=== PATIENT | female | born 1985 | race Caucasian/White ===

== ENCOUNTER 2016-07-16 05:53 | Inpatient (IN) | payer OTHER ==
[~2016-07-16] VITALS: Ht 167.6 cm; Wt 130.0 kg
[2016-07-16] VITALS (18 sets, daily range): BP systolic 105–155; BP diastolic 55–89
[~2016-07-16 05:53] MED LIST: PRENTAB9 PO
[2016-07-16] MEDS ORDERED: miSOPROStol 50 MCG 1/2 TAB (S0191) PO ONE ×2 (08:00→12:00)
[2016-07-16 08:11] LABS: MEAN CORPUSCULAR HEMOGLOBIN 33.8 pg (27.0-33.0); MEAN CORPUSCULAR HGB CONC 35.1 g/dl (32.0-36.5); MEAN CORPUSCULAR VOLUME 96.4 fl (80.0-96.0); RED CELL DISTRIBUTION WIDTH 12.1 % (11.5-14.5); WHITE BLOOD COUNT 9.7 K/mm3 (4.0-10.0)
[2016-07-16] MEDS ORDERED: OXYTOCIN 30 UNITS IN 0.9% NaCl 500ML IV BAG (J2590) As Ordered ONE (16:33)
[2016-07-16] MEDS ORDERED: LR 1,000 ML IV SCH (18:17)
[2016-07-16] MEDS ORDERED: BUTORPHANOL 2 MG/ML INJ (J0595) As Ordered ONE (18:18)
[2016-07-16] MEDS ORDERED: PROMETHAZINE INJ 25 MG/ML VIAL (J2550) As Ordered ONE (18:18)
[2016-07-16] MEDS ORDERED: PROMETHAZINE INJ 25 MG/ML VIAL (J2550) IV ONE (18:30)
[2016-07-16] MEDS ORDERED: OXYTOCIN DRIP 30 UNITS in APPROPRIATE DILUENT 1 EA IV SCH ×2 (18:30→19:48)
[2016-07-16] MEDS ORDERED: BUTORPHANOL 2 MG/ML INJ (J0595) IV ONE (18:30)
[2016-07-16] MEDS ORDERED: DIBUCAINE 1% OINTMENT 30GM TOP PRN (20:00)
[2016-07-16] MEDS ORDERED: METHYLERGONOVINE MALEATE 0.2 MG TAB PO PRN (20:00)
[2016-07-16] MEDS ORDERED: DOCUSATE SODIUM 100 MG CAP PO PRN (20:00)
[2016-07-16] MEDS ORDERED: MEASLES,MUMPS,RUBELLA VACCINE INJ (MMR-II) (90707) SC SCH (20:00)
[2016-07-16] MEDS ORDERED: LIDOCAINE 1% MDV INJ 50 ML VIAL INFIL ONE (20:00)
[2016-07-16] MEDS ORDERED: RHOGAM 300 MCG (1500 IU) INJ (J2790) IM SCH (20:00)
[2016-07-16] MEDS: IBUPROFEN 800 MG TAB PO PRN (23:37)
[2016-07-17] MEDS: ACETAMINOPHEN 500 MG TAB PO PRN ×2 (02:37→09:46)
[2016-07-17 06:23] VITALS: BP 110/55
[2016-07-17] MEDS: PRENATAL VITAMIN TAB PO SCH (07:53)
[2016-07-17] MEDS: IBUPROFEN 800 MG TAB PO PRN ×3 (07:54→22:31)
[2016-07-17 17:58] VITALS: BP 112/67
[2016-07-18 05:35] VITALS: BP 110/54
[2016-07-18] MEDS ORDERED: IBUP-1114 PO (08:31)
[2016-07-18] MEDS ORDERED: ACET50TA PO (08:31)
[2016-07-18] MEDS: PRENATAL VITAMIN TAB PO SCH (09:10)
[2016-07-18] MEDS: IBUPROFEN 800 MG TAB PO PRN (09:10)
== END 2016-07-18 10:20 | disposition home or self-care (01) | DRG 560 ==
LOC: M LDI 05:53 → M OBS 21:03
PROVIDERS: ADMIT Obstetrics & Gynecology; ATTEND Obstetrics & Gynecology
PROC: 10E0XZZ Delivery of Products of Conception, External Approach (ICD-10-PCS; principal; 2016-07-16)
PROC: 0HQ9XZZ Repair Perineum Skin, External Approach (ICD-10-PCS; 2016-07-16)
PROC: 3E0D7GC Introduction of Other Therapeutic Substance into Mouth and Pharynx, Via Natural or Artificial Opening (ICD-10-PCS; 2016-07-16)
DX: O48.0 Post-term pregnancy (principal); O64.5XX0 Obstructed labor due to compound presentation, not applicable or unspecified; F17.200 Nicotine dependence, unspecified, uncomplicated; Z37.0 Single live birth; Z3A.40 40 weeks gestation of pregnancy; Z88.1 Allergy status to other antibiotic agents; Z82.49 Family history of ischemic heart disease and other diseases of the circulatory system; Z83.3 Family history of diabetes mellitus; Z82.5 Family history of asthma and other chronic lower respiratory diseases; Z82.3 Family history of stroke; Z83.6 Family history of other diseases of the respiratory system; O70.0 First degree perineal laceration during delivery; O99.334 Smoking (tobacco) complicating childbirth

== ENCOUNTER 2017-01-17 09:00 | Emergency (ER) | payer OTHER ==
[~2017-01-17] VITALS: Ht 167.6 cm; Wt 98.7 kg
[~2017-01-17 09:00] MED LIST changes: +ACET50TA PO; +IBUP-1114 PO
[2017-01-17 10:31] LABS: MEAN CORPUSCULAR HEMOGLOBIN 33.5 pg (27.0-33.0); MEAN CORPUSCULAR HGB CONC 34.8 g/dl (32.0-36.5); MEAN CORPUSCULAR VOLUME 96.1 fl (80.0-96.0); RED CELL DISTRIBUTION WIDTH 11.4 % (11.5-14.5); WHITE BLOOD COUNT 10.6 K/mm3 (4.0-10.0)
[2017-01-17] MEDS ORDERED: LORazepam 2 MG TAB PO STA (10:33)
[2017-01-17 10:42] LABS: CONTROL LINE HCG INT CTR LINE PRESENT
[2017-01-17 10:59] LABS: ALBUMIN/GLOBULIN RATIO 1.21 (1.00-1.93); ALKALINE PHOSPHATASE 97 U/L (45-117); ALT/SGPT 34 U/L (12-78); ANION GAP 6 MEQ/L (8-16); AST/SGOT 22 U/L (15-37); BILIRUBIN,DIRECT 0.2 MG/DL (0.0-0.2); BILIRUBIN,TOTAL 0.9 MG/DL (0.2-1.0); BLOOD UREA NITROGEN 8 MG/DL (7-18); CALCIUM LEVEL 9.6 MG/DL (8.5-10.1); CARBON DIOXIDE LEVEL 28 MEQ/L (21-32); CHLORIDE LEVEL 108 MEQ/L (98-107); CREATININE FOR GFR 0.75 MG/DL (0.55-1.02); GLOMERULAR FILTRATION RATE > 60.0 (>60); GLUCOSE, FASTING 100 MG/DL (70-105); POTASSIUM SERUM 3.8 MEQ/L (3.5-5.1); SODIUM LEVEL 142 MEQ/L (136-145); TOTAL PROTEIN 7.3 GM/DL (6.4-8.2)
[2017-01-17 11:09] LABS: METHADONE URINE NEGATIVE (NEGATIVE)
[2017-01-17 12:24] VITALS: BP 128/75
[2017-03-25] MEDS ORDERED: ZOLO100T PO (07:49)
[2017-03-25] MEDS ORDERED: ZOLO50TA PO (07:49)
[2017-03-25] MEDS ORDERED: METO1TAB32 PO (07:49)
== END 2017-01-17 12:27 | disposition home or self-care (01) ==
LOC: M ED 09:00
DX: F41.9 Anxiety disorder, unspecified (principal); F31.9 Bipolar disorder, unspecified; F60.9 Personality disorder, unspecified; Z88.0 Allergy status to penicillin; Z88.6 Allergy status to analgesic agent

== ENCOUNTER 2017-04-05 13:20 | Day surgery (SDC) | payer OTHER ==
[~2017-04-05] VITALS: Ht 167.6 cm; Wt 90.7 kg
[~2017-04-05 13:20] MED LIST changes: +METO1TAB32 PO; +ZOLO100T PO; +ZOLO50TA PO
[2017-04-05] MEDS ORDERED: BUPIVACAINE HCL 0.25% 30 ML VIAL As Ordered ONE (13:29)
[2017-04-05] MEDS ORDERED: LIDOCAINE 1% MDV 20ML VIAL SQ ONE (13:45)
[2017-04-05] MEDS ORDERED: LR 1,000 ML IV ONE (13:45)
[2017-04-05 14:15] LABS: MEAN CORPUSCULAR HGB CONC 35.5 g/dl (32.0-36.5); MEAN CORPUSCULAR VOLUME 95.8 fl (80.0-96.0); RED CELL DISTRIBUTION WIDTH 11.6 % (11.5-14.5); WHITE BLOOD COUNT 11.8 K/mm3 (4.0-10.0)
[2017-04-05] MEDS ORDERED: ONDANSETRON 4MG/2ML VIAL (J2405) As Ordered ONE (14:39)
[2017-04-05] MEDS ORDERED: ROCURONIUM BROMIDE 50 MG/5 ML VIAL/SYRINGE As Ordered ONE (14:39)
[2017-04-05] MEDS ORDERED: LIDOCAINE 2% INJ 100 MG/5 ML SDV (FOR ANES.) As Ordered ONE (14:39)
[2017-04-05] MEDS ORDERED: PROPOFOL 200 MG/20 ML VIAL As Ordered ONE (14:39)
[2017-04-05] MEDS ORDERED: fentaNYL 100 MCG/2 ML INJECTION (J3010) As Ordered ONE (14:39)
[2017-04-05] MEDS ORDERED: MIDAZOLAM INJ 2 MG/2 ML VIAL (J2250) As Ordered ONE (14:42)
[2017-04-05 15:38] LABS: CONTROL LINE UCG INT CTR LINE PRESENT
[2017-04-05 15:45] LABS: CONTROL LINE HCG INT CTR LINE PRESENT
[2017-04-05] MEDS ORDERED: GLYCOPYRROLATE INJ 0.2 MG/ML 2 ML VIAL As Ordered ONE (16:30)
[2017-04-05] MEDS ORDERED: NEOSTIGMINE 1MG/ML 5 ML SYRINGE (J2710) As Ordered ONE (16:30)
[2017-04-05] MEDS ORDERED: KETOROLAC 60 MG/2 ML VIAL (J1885) As Ordered ONE (16:52)
[2017-04-05] MEDS ORDERED: MEPERIDINE INJ 25 MG/ML VIAL (J2175) As Ordered ONE (17:08)
[2017-04-05] MEDS: MEPERIDINE INJ 25 MG/ML VIAL (J2175) IV PRN ×2 (17:08→17:25)
[2017-04-05] MEDS ORDERED: fentaNYL 100 MCG/2 ML INJECTION (J3010) IV PRN (17:15)
[2017-04-05] MEDS ORDERED: ONDANSETRON 4MG/2ML VIAL (J2405) IV PRN (17:15)
[2017-04-05] MEDS ORDERED: LR 1,000 ML IV SCH (17:15)
[2017-04-05] MEDS ORDERED: PERCOCET 5MG/325MG TAB As Ordered ONE (17:20)
[2017-04-05] MEDS: PERCOCET 5MG/325MG TAB PO PRN ×2 (17:30→18:21)
--- NOTE | 2017-04-05 18:21 | RO ---
DATE OF PROCEDURE: 04/05/2017 PREPROCEDURE DIAGNOSIS: Satisfied parity with undesired fertility. POSTPROCEDURE DIAGNOSIS: Satisfied parity with undesired fertility. PROCEDURE: Laparoscopic bilateral tubal ligation using Filshie clips. SURGEON: Stephanie Suresh MD EXECUTIVE CHEF ASSISTANT: None. ANESTHESIA: General endotracheal. ESTIMATED BLOOD LOSS: 5 mL INTRAVENOUS FLUIDS: 1100 mL of lactated Ringers solution. URINE OUTPUT: 100 mL SPECIMENS: None. PREOPERATIVE ANTIBIOTICS: None. OPERATIVE FINDINGS: Patient with normal appearing pelvic anatomy to include bilateral adnexa and uterus. Appendix was visualized, appeared to be normal as well as normal appearing liver edge. DESCRIPTION OF PROCEDURE: After informed consent was obtained and written consent was reviewed, the patient was brought to the operating room where general endotracheal anesthesia was obtained. She was then placed in the lithotomy position, and was prepped and draped in a normal sterile fashion. A time out in the operating room was then performed identifying the patient, procedure to be performed as well as drug allergies. A bivalve speculum was then placed revealing the cervix. The anterior lip of the cervix was grasped with single tooth tenaculum. A Hulka tenaculum was then advanced through the cervical os for means to manipulate the uterus. A single tooth tenaculum as well as the speculum was then removed. A Gillespie catheter was then placed and set to gravity. Gloves were changed and attention was turned to the patient's abdomen. 0.25% Marcaine was infused in umbilical region. This area was incised and a 5 mm trocar sleeve was advanced through the incision. Laparoscope was replaced, intraabdominal placement was confirmed. Pneumoperitoneum was then obtained using c02 gas. The abdomen was then surveyed with the above noted finding. Next, a second trocar was placed. This was 2 cm above the pubic symphysis in the midline. This area was infused with 0.25% Marcaine. An incision was made into this area. An 8 mm trocar sleeve was then advanced through this incision under direct visualization. Next, using a Filshie clip applicator, a Filshie clip was applied in the mid isthmus portion of the fallopian tube with good blanching noted. The fimbriated end of the of this fallopian tube was followed out prior to placement of the Filshie clip. Next in a similar fashion, the right fallopian tube was followed out to the fimbriated end. Filshie clip applicator was reloaded and a Filshie clip was applied in the mid isthmus portion of the right fallopian tube with good blanching noted. Instruments were then removed from the patient's abdomen. The pneumoperitoneum was then released. Trocars were removed. Incisions were closed with #4-0 Monocryl and was dressed with Dermabond. Gillespie catheter was removed as well as the Hulka tenaculum. Tenaculum sites were inspected and noted to be hemostatic. The patient was then taken out of lithotomy position, was awakened from general anesthesia and was taken to the recovery room in stable condition. Counts were correct.
[2017-04-05 19:50] VITALS: BP 117/68
== END 2017-04-05 20:05 | disposition home or self-care (01) ==
LOC: M SDC 13:20
PROVIDERS: ATTEND Obstetrics & Gynecology
DX: Z30.2 Encounter for sterilization (principal); K21.9 Gastro-esophageal reflux disease without esophagitis; F17.210 Nicotine dependence, cigarettes, uncomplicated; Z79.899 Other long term (current) drug therapy; Z88.0 Allergy status to penicillin

== ENCOUNTER → 2017-09-11 | Outpatient (REF) | payer OTHER ==
[2017-09-14 00:07] LABS: HPV HYBRID CAPTURE II Negative (Negative)
== END ==
LOC: M LAB REF 18:30
DX: Z01.419 Encounter for gynecological examination (general) (routine) without abnormal findings (principal); Z11.51 Encounter for screening for human papillomavirus (HPV)

== ENCOUNTER → 2017-10-25 | Outpatient (CLI) | payer OTHER | LOC: M PLARAD 15:42 | DX: M51.37 Other intervertebral disc degeneration, lumbosacral region (principal) | CPT/HCPCS: 72148 ==

== ENCOUNTER → 2017-10-30 | Outpatient (CLI) | payer OTHER | LOC: M SLEEP HO 15:26 | DX: G47.33 Obstructive sleep apnea (adult) (pediatric) (principal) | CPT/HCPCS: G0399 ==

== ENCOUNTER → 2018-01-30 | Outpatient (CLI) | payer OTHER | LOC: M RAD 13:38 | DX: J32.4 Chronic pansinusitis (principal); D16.4 Benign neoplasm of bones of skull and face | CPT/HCPCS: 70486 ==

== ENCOUNTER 2018-09-30 10:35 | Outpatient (CLI) | payer OTHER ==
[~2018-09-30 10:35] MED LIST changes: -ACET50TA PO; +CYCL10TA PO; +GABA-1171 PO; +HYDR50TA70 PO; +MAPA500T2 PO
[2018-09-30] MEDS ORDERED: MIDAZOLAM INJ 2 MG/2 ML VIAL (J2250) As Ordered ONE ×2 (12:43→13:11)
[2018-09-30] MEDS ORDERED: fentaNYL 100 MCG/2 ML INJECTION (J3010) As Ordered ONE (13:11)
[2018-09-30] MEDS ORDERED: KETAMINE INJ 500 MG/5 ML VIAL As Ordered ONE (13:15)
--- NOTE | 2018-09-30 14:07 | REP ---
MR CERVICAL SPINE WITHOUT CONTRAST: HISTORY: Cervicalgia. The examination is extremely limited secondary to motion. Disc bulges are present at the C5-6 and C6-7 levels. There is no definite spinal cord compression. The visualized neural foramina are patent. There are no definite areas of abnormal signal intensity in the spinal cord. The C5-6 intervertebral disc is decreased in height consistent with disc degeneration. Increased signal intensity on T2-weighted images is present in the inferior endplate of the C5 vertebral body. This represents degenerative change. IMPRESSION: Very limited examination demonstrating cervical spondylosis at the C5-6 and C6-7 levels. Electronically Signed by Pierre Robert MD 09/30/2018 02:13 P
--- NOTE | 2018-09-30 14:08 | REP ---
MR Brain without contrast HISTORY: Cervicalgia COMPARISON : CT 11/22/2017 The examination is very limited secondary to motion. There are no definite areas of abnormal signal intensity in the brain. There is no intraparenchymal hemorrhage, infarct, mass or midline shift. The ventricular system is normal in appearance. There is no extra cerebral collection. Mucosal thickening is present in the right ethmoid and sphenoid sinuses. IMPRESSION: Limited examination demonstrating no definite intracranial lesion. Electronically Signed by Pierre Robert MD 09/30/2018 02:00 P
[2018-09-30 15:10] VITALS: BP 120/70
== END 2018-09-30 15:20 | disposition home or self-care (01) ==
LOC: M SDC 10:35
PROVIDERS: ATTEND Psychiatry & Neurology Neurology
DX: M47.812 Spondylosis without myelopathy or radiculopathy, cervical region (principal); M62.9 Disorder of muscle, unspecified; R20.2 Paresthesia of skin; F17.210 Nicotine dependence, cigarettes, uncomplicated; F12.20 Cannabis dependence, uncomplicated; Z79.899 Other long term (current) drug therapy
CPT/HCPCS: 70551; 72141; 99156; 99157; J2250

== ENCOUNTER → 2019-01-08 | Outpatient (CLI) | payer OTHER ==
[2019-01-08 17:35] LABS: HCG, SERUM QUALITATIVE NEGATIVE (NEGATIVE)
[2019-01-08 17:44] LABS: FREE T4 0.82 NG/DL (0.76-1.46)
[2019-01-08 17:52] LABS: PROLACTIN 7.2 NG/ML
== END ==
LOC: M SMT 15:31
PROVIDERS: ATTEND Advanced Practice Midwife
DX: N64.3 Galactorrhea not associated with childbirth (principal)

== ENCOUNTER → 2020-05-21 | Outpatient (CLI) | payer OTHER ==
[~2020-05-21] MED LIST changes: +CYCL-707 PO; -CYCL10TA PO
--- NOTE | 2020-05-21 15:43 | REP ---
INDICATION: PAIN. COMPARISON: 01/20/2012 TECHNIQUE: Three views are provided. FINDINGS: AC joint shows no widening or elevation of the clavicle in relationship to the acromion. No significant spurring. Clavicle, scapula, visible humerus and ribs are without fracture there is no subluxation or dislocation of the in a Ilya from the glenoid. No abnormal soft tissue calcification. IMPRESSION: 1. Negative left shoulder for fracture, subluxation, focal bone lesion or abnormal soft tissue calcification. Both the AC and glenohumeral joints were unremarkable. <Electronically signed by Micky Hernandez > 05/21/20 [id number]
--- NOTE | 2020-05-21 15:50 | REP ---
INDICATION: PAIN. COMPARISON: 01/20/2012 TECHNIQUE: Six views, patient could not extend and open her mouth sufficiently for an odontoid view FINDINGS: The lateral view shows some loss of the normal cervical lordosis which remains only at the C2-3 level. There is cervical spondylosis at C5-6 and C6-7 with significant progression since 2012. Prominent anterior osteophytes and slightly smaller posterior osteophytes at C5-6 and C6-7. The C4-5 and above disc levels are maintained. There is no subluxation with flexion and extension. C1-2 relationship is intact on all views. Both flexion and extension are limited with significant decreased range of motion. Some facet arthropathy is noted. Uncinate spurs are prominent at C5-6 and C6-7 on the right and left sides. These cause foraminal encroachment at both these levels. The AP view shows no torticollis. The dens maintains normal relationship to the anterior arch of C1 on all lateral views. No fracture or compression deformity. No prevertebral swelling. IMPRESSION: 1. Significant progression of cervical spondylosis at C5-6 and C6-7 with anterior osteophytes, just slightly smaller posterior osteophytes at these levels and disc space narrowing, progressive. 2. The other disc space heights and vertebral heights are maintained. 3. Very limited range of motion with flexion and extension but no instability, prevertebral swelling, compression deformity or other acute finding on lateral projection. 4. Uncinate spurring with bilateral foraminal encroachment at C5-6 and C6-7. <Electronically signed by Micky Hernandez > 05/21/20 1586
== END ==
LOC: M WUC 15:12
PROVIDERS: ATTEND Nurse Practitioner Family
DX: M47.812 Spondylosis without myelopathy or radiculopathy, cervical region (principal); M25.78 Osteophyte, vertebrae; M25.512 Pain in left shoulder

== ENCOUNTER 2021-04-17 08:15 | Emergency (ER) | payer OTHER ==
[~2021-04-17] VITALS: Ht 142.2 cm; Wt 75.0 kg
[2021-04-17 08:15] VITALS: BP 123/76
[2021-04-17] MEDS ORDERED: hydrOXYzine 50 MG TAB PO ONE (10:00)
== END 2021-04-17 11:41 | disposition home or self-care (01) ==
LOC: M ED 08:15
DX: F41.0 Panic disorder [episodic paroxysmal anxiety] (principal); Z88.8 Allergy status to other drugs, medicaments and biological substances; Z79.899 Other long term (current) drug therapy

== ENCOUNTER → 2021-04-18 | Outpatient (CLI) | payer OTHER ==
[2021-04-18 10:18] LABS: BASO # 0.1 10^3/uL (0.0-0.2); BASO % 0.6 % (0.0-1.0); EOS # 0.1 10^3/uL (0.0-0.5); EOS % 0.6 % (0.0-3.0); HEMATOCRIT 44.5 % (36.0-47.0); HEMOGLOBIN 15.3 g/dl (12.0-15.5); LYMPH # 2.4 10^3/uL (1.5-5.0); LYMPH % 21.7 % (24.0-44.0); MEAN CORPUSCULAR HEMOGLOBIN 33.8 pg (27.0-33.0); MEAN CORPUSCULAR HGB CONC 34.4 g/dl (32.0-36.5); MEAN CORPUSCULAR VOLUME 98.5 fl (80.0-96.0); MONO # 0.7 10^3/uL (0.0-0.8); MONO % 6.8 % (2.0-8.0); NEUTROPHILS # 7.6 10^3/uL (1.5-8.5); NEUTROPHILS % 69.7 % (36.0-66.0); PLATELET COUNT, AUTOMATED 252 10^3/uL (150-450); RED BLOOD COUNT 4.52 10^6/uL (4.00-5.40); WHITE BLOOD COUNT 10.9 10^3/uL (4.0-10.0)
[2021-04-18 13:08] LABS: ALT/SGPT 25 U/L (12-78); AMYLASE 31 U/L (25-115); BILIRUBIN,TOTAL 1.5 MG/DL (0.2-1.0); BLOOD UREA NITROGEN 13 MG/DL (7-18); CALCIUM LEVEL 9.6 MG/DL (8.5-10.1); CARBON DIOXIDE LEVEL 29 MEQ/L (21-32); CHLORIDE LEVEL 106 MEQ/L (98-107); GLOMERULAR FILTRATION RATE > 60.0 (>60); GLUCOSE, FASTING 96 MG/DL (70-100); LIPASE 126 U/L (73-393); POTASSIUM SERUM 3.7 MEQ/L (3.5-5.1); SODIUM LEVEL 140 MEQ/L (136-145); TOTAL PROTEIN 6.9 GM/DL (6.4-8.2)
== END ==
LOC: M WUC 08:21
PROVIDERS: ATTEND Family Medicine
DX: R10.84 Generalized abdominal pain (principal); R53.81 Other malaise

== ENCOUNTER → 2021-05-24 | Outpatient (REF) | payer OTHER | LOC: M SFHCWAGY 10:21 | PROVIDERS: ATTEND Obstetrics & Gynecology | DX: Z12.4 Encounter for screening for malignant neoplasm of cervix (principal); R87.610 Atypical squamous cells of undetermined significance on cytologic smear of cervix (ASC-US) ==

== ENCOUNTER → 2022-09-20 | Outpatient (REF) | payer OTHER | LOC: M SFHCWAGY 17:17 | PROVIDERS: ATTEND Obstetrics & Gynecology | DX: Z01.419 Encounter for gynecological examination (general) (routine) without abnormal findings (principal); R87.610 Atypical squamous cells of undetermined significance on cytologic smear of cervix (ASC-US) ==

== ENCOUNTER → 2023-06-03 | Outpatient (CLI) | payer OTHER ==
[~2023-06-03] MED LIST changes: +DICY20TA20 PO; +MIRA3350 PO; +ONDA4TAB6 PO; +PROP60CA
== END ==
LOC: M RAD 08:12
PROVIDERS: ATTEND Internal Medicine Gastroenterology
DX: R10.12 Left upper quadrant pain (principal); R11.2 Nausea with vomiting, unspecified
CPT/HCPCS: 78264; A9541

== ENCOUNTER 2023-06-07 13:27 | Emergency (ER) | payer OTHER ==
[~2023-06-07] VITALS: Ht 167.6 cm; Wt 77.5 kg
[2023-06-07 13:28] VITALS: TEMP 97.8
[2023-06-07 14:59] LABS: BASO # 0.1 10^3/uL (0.0-0.2); BASO % 0.7 % (0.0-1.0); EOS # 0.2 10^3/uL (0.0-0.5); EOS % 2.9 % (0.0-3.0); HEMATOCRIT 43.4 % (36.0-47.0); HEMOGLOBIN 14.8 g/dl (12.0-15.5); LYMPH # 2.7 10^3/uL (1.5-5.0); LYMPH % 31.9 % (24.0-44.0); MEAN CORPUSCULAR HEMOGLOBIN 35.2 pg (27.0-33.0); MEAN CORPUSCULAR HGB CONC 34.1 g/dl (32.0-36.5); MEAN CORPUSCULAR VOLUME 103.1 fl (80.0-96.0); MONO # 0.7 10^3/uL (0.0-0.8); MONO % 8.5 % (2.0-8.0); NEUTROPHILS # 4.7 10^3/uL (1.5-8.5); NEUTROPHILS % 55.8 % (36.0-66.0); PLATELET COUNT, AUTOMATED 238 10^3/uL (150-450); RED BLOOD COUNT 4.21 10^6/uL (4.00-5.40); WHITE BLOOD COUNT 8.4 10^3/uL (4.0-10.0)
[2023-06-07 15:30] LABS: LIPASE 38 U/L (12-53)
[2023-06-07 15:32] LABS: ALKALINE PHOSPHATASE 65 U/L (46-116); ALT/SGPT 21 U/L (7.0-40); AST/SGOT 20 U/L (<34); BILIRUBIN,DIRECT 0.4 MG/DL (<0.4); BILIRUBIN,TOTAL 1.3 MG/DL (0.3-1.2); BLOOD UREA NITROGEN 16 MG/DL (9-23); CALCIUM LEVEL 9.5 MG/DL (8.5-10.1); CARBON DIOXIDE LEVEL 29 MMOL/L (20-31); CHLORIDE LEVEL 109 MMOL/L (98-107); CREATININE FOR GFR 0.72 MG/DL (0.55-1.30); GLOMERULAR FILTRATION RATE > 60.0 (>60); GLUCOSE, FASTING 116 MG/DL (60-100); POTASSIUM SERUM 4.8 MMOL/L (3.5-5.1); SODIUM LEVEL 142 MMOL/L (136-145); TOTAL PROTEIN 6.9 G/DL (5.7-8.2)
[2023-06-07 15:36] LABS: HCG, SERUM QUALITATIVE NEGATIVE (NEGATIVE)
[2023-06-07] MEDS ORDERED: ACETAMINOPHEN *IV* 1,000 MG in IV 1 EA IV ONE (16:40)
[2023-06-07] MEDS ORDERED: METOCLOPRAMIDE INJ 10MG/2ML VIAL IV ONE (16:40)
[2023-06-07] MEDS ORDERED: NS 1,000 ML IV ONE (16:40)
[2023-06-07] MEDS ORDERED: ISOVUE-370 76% 100ML VIAL As Ordered ONE (16:47)
[2023-06-07 19:15] VITALS: BP 136/84; O2SAT 96
[2023-06-11] MEDS ORDERED: LINZ145C (07:42)
[2023-06-11] MEDS ORDERED: SUCR1TAB56 (07:42)
[2023-06-11] MEDS ORDERED: HYDR-3363 PO (11:42)
[2023-06-11] MEDS ORDERED: PROM12.56 PO (11:42)
== END 2023-06-07 20:33 | disposition home or self-care (01) ==
LOC: M ED 13:27
DX: K59.00 Constipation, unspecified (principal); N83.202 Unspecified ovarian cyst, left side; K76.89 Other specified diseases of liver; R91.1 Solitary pulmonary nodule; F12.10 Cannabis abuse, uncomplicated; F10.10 Alcohol abuse, uncomplicated; Z88.1 Allergy status to other antibiotic agents; Z88.6 Allergy status to analgesic agent; Z88.8 Allergy status to other drugs, medicaments and biological substances; Z79.83 Long term (current) use of bisphosphonates; Z79.810 Long term (current) use of selective estrogen receptor modulators (SERMs); Z79.899 Other long term (current) drug therapy
CPT/HCPCS: 74177; 80048; 80076; 81001; 83690; 84703; 85025; 87086; 96361; 96374; 96375; 99284; J0131; J2765; Q9967

== ENCOUNTER 2023-08-22 08:52 | Emergency (ER) | payer OTHER ==
[~2023-08-22] VITALS: Ht 167.6 cm; Wt 72.7 kg
[~2023-08-22 08:52] MED LIST changes: +HYDR-3363 PO; +LINZ145C; +PROM12.56 PO; +SUCR1TAB56
[2023-08-22] MEDS: NS 1,000 ML IV ONE (09:38)
[2023-08-22 09:54] LABS: BASO # 0.1 10^3/uL (0.0-0.2); BASO % 0.5 % (0.0-1.0); EOS # 0.2 10^3/uL (0.0-0.5); EOS % 1.4 % (0.0-3.0); HEMATOCRIT 41.1 % (36.0-47.0); HEMOGLOBIN 14.4 g/dl (12.0-15.5); LYMPH # 2.4 10^3/uL (1.5-5.0); LYMPH % 19.5 % (24.0-44.0); MEAN CORPUSCULAR HEMOGLOBIN 34.9 pg (27.0-33.0); MEAN CORPUSCULAR VOLUME 99.5 fl (80.0-96.0); MONO % 8.3 % (2.0-8.0); NEUTROPHILS # 8.5 10^3/uL (1.5-8.5); NEUTROPHILS % 70.1 % (36.0-66.0); PLATELET COUNT, AUTOMATED 235 10^3/uL (150-450); RED BLOOD COUNT 4.13 10^6/uL (4.00-5.40); WHITE BLOOD COUNT 12.1 10^3/uL (4.0-10.0)
[2023-08-22 10:08] LABS: BLOOD UREA NITROGEN 13 MG/DL (9-23); CALCIUM LEVEL 9.2 MG/DL (8.5-10.1); CARBON DIOXIDE LEVEL 28 MMOL/L (20-31); CHLORIDE LEVEL 105 MMOL/L (98-107); GLOMERULAR FILTRATION RATE > 60.0 (>60); GLUCOSE, FASTING 98 MG/DL (60-100); POTASSIUM SERUM 3.6 MMOL/L (3.5-5.1); SODIUM LEVEL 140 MMOL/L (136-145)
[2023-08-22 10:10] LABS: HCG, SERUM QUALITATIVE NEGATIVE (NEGATIVE)
[2023-08-22 10:12] LABS: FREE T4 1.41 NG/DL (0.89-1.76); THYROID STIMULATING HORMONE 2.064 uIU/ML (0.55-4.78)
[2023-08-22 11:07] VITALS: BP 115/65; TEMP 96.8; O2SAT 98
[2023-08-22 11:30] LABS: AMPHETAMINES LEVEL URINE NEGATIVE (NEGATIVE); BARBITURATES URINE NEGATIVE (NEGATIVE); BENZODIAZEPINES URINE NEGATIVE (NEGATIVE); COCAINE METABOLITE URINE NEGATIVE (NEGATIVE); METHADONE URINE NEGATIVE (NEGATIVE)
[2023-08-22 11:31] LABS: OPIATES URINE NEGATIVE (NEGATIVE); PHENCYCLIDINE URINE NEGATIVE (NEGATIVE)
[2023-08-22 11:46] LABS: CANNABINOIDS URINE POSITIVE (NEGATIVE)
== END 2023-08-22 11:12 | disposition home or self-care (01) ==
LOC: EDBD 08:52 → M ED 08:52
DX: J06.9 Acute upper respiratory infection, unspecified (principal); R00.2 Palpitations; Z86.79 Personal history of other diseases of the circulatory system; Z88.1 Allergy status to other antibiotic agents; Z88.6 Allergy status to analgesic agent; Z88.8 Allergy status to other drugs, medicaments and biological substances; Z79.1 Long term (current) use of non-steroidal anti-inflammatories (NSAID); Z79.811 Long term (current) use of aromatase inhibitors; Z79.899 Other long term (current) drug therapy

== ENCOUNTER → 2023-10-14 | Outpatient (REF) | payer OTHER | LOC: M LAB REF 10:20 | PROVIDERS: ATTEND Internal Medicine Gastroenterology | DX: R10.12 Left upper quadrant pain (principal); R11.2 Nausea with vomiting, unspecified; K62.89 Other specified diseases of anus and rectum; K29.70 Gastritis, unspecified, without bleeding ==

== ENCOUNTER → 2023-10-15 | Outpatient (CLI) | payer OTHER | LOC: M LAB 09:55 | PROVIDERS: ATTEND Internal Medicine Gastroenterology | DX: R10.12 Left upper quadrant pain (principal); R11.2 Nausea with vomiting, unspecified; K52.9 Noninfective gastroenteritis and colitis, unspecified; K62.89 Other specified diseases of anus and rectum; K29.70 Gastritis, unspecified, without bleeding ==

== ENCOUNTER → 2024-01-06 | Outpatient (CLI) | payer OTHER ==
[~2024-01-06] MED LIST changes: +CALC600T86 PO; +FAMO20TA5 PO; +HYDR-643 PO; +HYOS0.1214 SL; +LIDOCAINE 1% MDV 20ML VIAL As Ordered ONE; +ONDA-282 PO; -ONDA4TAB6 PO; -PROP60CA; +PROP60CA PO; +SIME80CH6 PO; +SUCR1TAB56 PO
[2024-01-06 10:48] VITALS: BP 147/65; TEMP 98.7; O2SAT 97
[2024-01-06 11:10] VITALS: BP 116/66; TEMP 98.7; O2SAT 98
== END ==
LOC: M IRPRO 10:24
PROVIDERS: ATTEND Internal Medicine Gastroenterology
DX: E83.119 Hemochromatosis, unspecified (principal); Z53.9 Procedure and treatment not carried out, unspecified reason

== ENCOUNTER → 2024-01-08 | Outpatient (CLI) | payer OTHER ==
[~2024-01-08] MED LIST changes: +MIDAZOLAM INJ 2MG/2ML VIAL As Ordered ONE; +PERCOCET 5MG/325MG TAB As Ordered ONE; +fentaNYL 100 MCG/2 ML INJECTION As Ordered ONE
[2024-01-08 11:55] VITALS: TEMP 97.9
[2024-01-08] MEDS: PERCOCET 5MG/325MG TAB PO PRN (13:43)
[2024-01-08 15:15] VITALS: BP 109/61; O2SAT 97
== END ==
LOC: M IRPRO 10:27
PROVIDERS: ATTEND Specialist
DX: E83.119 Hemochromatosis, unspecified (principal); K73.9 Chronic hepatitis, unspecified
CPT/HCPCS: 47000; 76942; 88305; 99152; 99153; J2250; J3010

== ENCOUNTER → 2024-11-13 | Outpatient (REF) | payer OTHER ==
[~2024-11-13] MED LIST changes: -HYOS0.1214 SL; +HYOS0.1282 SL; -LIDOCAINE 1% MDV 20ML VIAL As Ordered ONE; +METO10TA3; -MIDAZOLAM INJ 2MG/2ML VIAL As Ordered ONE; +ONDA-83 PO; -PERCOCET 5MG/325MG TAB As Ordered ONE; -fentaNYL 100 MCG/2 ML INJECTION As Ordered ONE
[2024-11-13 13:06] LABS: APPEARANCE, URINE HAZY (CLEAR); BACTERIA, URINE AUTO 1+ (NEGATIVE); BILIRUBIN, URINE AUTO NEGATIVE (NEGATIVE); BLOOD, URINE BLOOD 1+ (NEGATIVE); COLOR, URINE YELLOW (YELLOW); GLUCOSE, URINE (UA) AUTO NEGATIVE (NEGATIVE); KETONE, URINE AUTO NEGATIVE (NEGATIVE); LEUKOCYTE ESTERASE, URINE AUTO 2+ (NEGATIVE); MUCUS, URINE LARGE (NEGATIVE); NITRITE, URINE AUTO NEGATIVE (NEGATIVE); PROTEIN, URINE AUTO NEGATIVE (NEGATIVE); RBC, URINE AUTO 2 /HPF (0-3); SPECIFIC GRAVITY URINE AUTO 1.021 (1.002-1.035); SQUAMOUS EPITHELIAL CELL UR AU 6 /HPF (0-6); UROBILINOGEN, URINE AUTO 0.2 mg/dL (0.0-2.0); WBC, URINE AUTO 2 /HPF (0-3)
== END ==
LOC: M LAB REF 12:20
PROVIDERS: ATTEND Physician Assistant
DX: N39.0 Urinary tract infection, site not specified (principal)

== ENCOUNTER → 2025-07-02 | Outpatient (CLI) | payer OTHER | LOC: M RAD 08:05 | PROVIDERS: ATTEND Internal Medicine Gastroenterology | DX: K31.84 Gastroparesis (principal) | CPT/HCPCS: 78264; A9541 ==